=== PATIENT | male | born 1940 | race Caucasian/White ===

== ENCOUNTER 2016-11-07 19:58 | Inpatient (IN) | payer MEDICARE, OTHER ==
[~2016-11-07] VITALS: Ht 180.3 cm; Wt 105.8 kg
--- NOTE | ~2016-11-07 | HP ---
PATIENT'S NAME: [facility] AGE: 76 Y [address] ROOM: [place] [id number] LOCATION: [facility] ADMIT DATE: 11/07/2016 History & Physical DISCHARGE DATE: FAMILY PHYSICIAN: Chelsey Moses MD ATTENDING PHYSICIAN: Kendal Gamboa DATE OF SERVICE: 11/07/2016 REASON FOR REFERRAL: Subdural hematoma. PATIENT IDENTIFICATION: Sen Buck is a 76-year-old male. PRESENTING COMPLAINT: Headache. HISTORY OF PRESENT ILLNESS: The patient has had a headache for the last 2 weeks. He initially was thought to have a sinus infection and was treated with antibiotics. His headache continued. He was seen by his regular doctor, Dr. Beckwith. 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 The patient was therefore referred to me for evaluation and treatment. According to the patient's , the patient has been a little bit confused and not able to keep track of the time and what he has done in the last week or two. He has also been a little bit confused. PAST MEDICAL HISTORY: The patient says he has had some stents or cardiac procedures done here. He also has a history of high blood pressure. He is otherwise healthy. FAMILY HISTORY: No history of similar problems in any member of the family. SOCIAL HISTORY: The patient is . He is a [place]. REVIEW OF SYSTEMS: A 10-point review of systems was carried out, the only abnormal findings were as described in the history of present illness. PHYSICAL EXAMINATION: GENERAL: The patient is a healthy-looking male, who was alert and cooperative through the examination. VITAL SIGNS: Stable. PATIENT'S NAME: SEN BUCK [facility] AGE: 76 Y [address] ROOM: [address] [place] [id number] LOCATION: [facility] ADMIT DATE: 11/07/2016 History & Physical DISCHARGE DATE: FAMILY PHYSICIAN: Chelsey Moses MD ATTENDING PHYSICIAN: Kendal Gamboa NEUROLOGIC: His speech is intact. Cranial nerves, no deficits seen. Motor examination: The patient has normal strength in all the major muscle groups of his upper and lower extremities bilaterally. His gait is intact. HEAD: His head is atraumatic. EYES AND EARS: No evidence of trauma. SKIN: No skin rashes or skin masses. EXTREMITIES: No cyanosis or clubbing. CARDIOVASCULAR: Heart sounds present. RESPIRATORY: The patient is not short of breath at bedside. REVIEW OF IMAGING STUDIES: The patient has had a head CT scan done. The CT scan shows a chronic right subdural hematoma. There is a little bit of midline shift. ASSESSMENT: A 76-year-old gentleman with history of headaches and imaging studies show chronic right subdural hematoma. MEDICAL DECISION MAKING: I discussed the situation with the patient and the . I have recommended surgery. The surgery will be arpit hole evacuation of subdural hematoma. I have gone over the benefits, risks, and alternatives with the patient and his family. The surgery has been scheduled for November 08, 2016. MD CLAUDE BOSEO/jorge /[id number] CC: Carter Beckwith MD D: [id number] T: [id number] HISTORY & PHYSICAL
--- NOTE | ~2016-11-07 | DS ---
PATIENT'S NAME: SEN SEGOVIA [facility] AGE: 76 Y [address] ROOM: [address] [address] LOCATION: [facility] ADMIT DATE: 11/07/2016 Discharge Summary DISCHARGE DATE: 11/10/2016 FAMILY PHYSICIAN: Chelsey Moses MD ATTENDING PHYSICIAN: Kendal Gamboa REASON FOR ADMISSION: The patient is a 76-year-old male who presented with headache and unsteadiness. The head CT scan showed a chronic right subdural hematoma. On examination, the patient was a little bit confused, but had no major deficits. TREATMENT RENDERED: The patient was taken to the operating room on November 08, 2016. He had arpit hole drainage of chronic right subdural hematoma. The surgery was uncomplicated. The postoperative course was uneventful. The patient became much more alert and interactive after the procedure. He had a repeat head CT scan performed November 10, 2016. The CT scan showed significant reduction in the size of the chronic right subdural hematoma. There was some residual air and tiny amount of acute bleed in the most anterior part of the right frontal lobe subdural blood. There was no mass effect or midline shift present as had been seen before surgery. The patient was interacting well and eating normally. The incisions were clean and intact. The patient was discharged home on November 10, 2016 with arrangements made for followup in the Neurosurgery Clinic. He will have a repeat CT scan also to confirm complete resolution of his subdural hematoma. MD CLAUDE BOSEO/jorge /[id number] d: 11/12/16 0253 t: 11/13/16 1558, DISCHARGE SUMMARY
--- NOTE | ~2016-11-07 | OR ---
PATIENT'S NAME: SEN SEGOVIA [facility] AGE: 76 Y [address] ROOM: [address] [address] LOCATION: [facility] ADMIT DATE: 11/07/2016 OR/Procedure Report DISCHARGE DATE: FAMILY PHYSICIAN: Chelsey Moses MD ATTENDING PHYSICIAN: Kendal Sandoval SURGEON: Kendal Sandoval MD CLUB CONCIERGE: Sen Nelson CST. DATE OF PROCEDURE: 11/08/2016 PREOPERATIVE DIAGNOSIS: Chronic right subdural hematoma. POSTOPERATIVE DIAGNOSIS: Chronic right subdural hematoma. PROCEDURE PERFORMED: Arpit hole drainage of chronic right subdural hematoma. ANESTHESIA: General. ANESTHESIA PROVIDER: Silvano Archibald MD. HISTORY: This patient is a 76-year-old gentleman who presented with headache and confusion. CT scan showed a chronic right subdural hematoma. Surgery was recommended. The procedure of arpit hole and drainage of subdural hematoma were explained to the patient and his family. The risks and benefits were discussed and with their consent, the patient was brought to the operating room for surgery. PROCEDURE IN DETAIL: In the operating room, the patient was placed supine and anesthesia was induced. His head was placed on a gel donut and turned facing the left side. The hair on the right side of his head was clipped. The incision lines were marked out for the 2 arpit holes. The 2 areas were prepped and draped in a sterile fashion. Local anesthesia was infiltrated. The #10 blade was used to open the incisions and Bovie was used to deepen the incision to the skull. Self-retaining retractors were placed. Guy holes were made. The dura was opened and subdural blood came out. The blood was dark brown consistent with chronic subdural hematoma. A red rubber catheter was inserted and irrigation was used to wash out the rest of the blood. Irrigation continued until the returns were clear. The drain was then brought out through a stab incision on the scalp. The arpit hole sites were closed with suture materials. The drain was anchored to the scalp. Sterile dressing was applied. The patient's anesthesia was reversed. He was extubated and taken to the recovery room to complete his recovery. PATIENT'S NAME: SEN SEGOVIA [facility] AGE: 76 Y [address] ROOM: [address] [address] LOCATION: [facility] ADMIT DATE: 11/07/2016 OR/Procedure Report DISCHARGE DATE: FAMILY PHYSICIAN: Chelsey Moses MD ATTENDING PHYSICIAN: Kendal Sandoval I was present at and performed every aspect of this procedure, assisted at some stages by the operating room nurses. There were no apparent intraoperative complications. Swabs, needles, and instruments were all accounted for the end of the case. Estimated blood loss was less than 20 mL. There was no reason for blood transfusion. I expect the patient to benefit from this procedure. The repeat CT scan will be obtained to confirm complete evacuation of the hematoma. KENDAL SANDOVAL MD CNO/modl /[id number] d: 11/09/16821 t: 11/13/16 1555, OPERATIVE SUMMARY
[2016-11-07] MEDS ORDERED: PRILOSEC20 MG PO (22:04)
[2016-11-07] MEDS ORDERED: HYDRODIURIL25 MG PO (22:05)
[2016-11-07] MEDS ORDERED: COREG6.25 MG PO (22:06)
[2016-11-07] MEDS ORDERED: LIPITOR20 M1 PO (22:07)
[2016-11-07] MEDS ORDERED: OMNICEF 300MG300 MG PO (22:08)
[2016-11-07] MEDS ORDERED: MUCINEX DM ER1 EAC1 PO (22:09)
[2016-11-07] MEDS ORDERED: BACTRIM DS1 TAB PO (22:10)
[2016-11-07] MEDS ORDERED: PREDNISONE10 MG PO (22:11)
[2016-11-07] MEDS ORDERED: AMLODIPINE-VAL1 EAC1 PO (22:14)
[2016-11-07 22:21] LABS: BASOPHIL % 0.7 %; EOSINOPHIL # 0.1 K/uL (0.0-0.5); EOSINOPHIL % 1.1 %; HEMATOCRIT 37.7 % (37.0-53.0); HEMOGLOBIN 12.8 g/dL (11.0-16.0); IMMATURE GRANULOCYTE % 0.4 %; LYMPHOCYTE # 1.3 K/uL (0.8-4.0); MCH 28.3 pg (27.0-34.0); MCV 83.2 fl (83.0-98.0); MONOCYTE # 0.4 K/uL (0.0-1.0); MONOCYTE % 6.8 %; NEUTROPHIL # (ANC) 3.6 K/uL (1.4-9.0); NRBC % 0 /100WBC (0-0.00); PLATELET COUNT 160 K/uL (150-450); RBC 4.53 M/uL (3.50-5.50); RDW-CV 12.7 % (11.9-14.6); WBC 5.4 K/uL (4.0-11.0)
--- NOTE | 2016-11-07 22:26 | NUR ---
Patient chief complaint is headache. He states the headache has been off and on for a week. Went to the Dr today and had a CT of head done, results showed an subdural hematoma. On admission patient is A/Ox3 but forgetful. Patients family states he has been more forgetful this past few days. No falls or head injuries that the patient/family can remember. Lungs clear. Bowel sounds present, last BM 11/07/16. No complaints of dizziness, vision changes, nausea or vomiting. Other neuro are negative. Iv to lt forarm. NPO after breakfast. Isael Holes to be done tomorrow afternoon. Family at bedside.
[2016-11-07 22:30] LABS: PROTIME 10.8 SECONDS (9.6-11.1); PTT 26 SECONDS (25-32)
[2016-11-07 22:36] LABS: ALBUMIN 3.6 gm/dL (3.5-5.0); ALK PHOS 56 IU/L (33-138); ALT 33 IU/L (12-78); ANION GAP 10.7 (10.0-19.0); AST 16 IU/L (10-40); BLOOD UREA NITROGEN 21 mg/dL (6-24); CALCIUM 8.3 mg/dL (8.5-10.5); CHLORIDE 109 mMol/L (96-110); CO2 26 mMol/L (22-32); ESTIMATED GFR (MDRD EQUATION) > 60; POTASSIUM 3.7 mMol/L (3.7-5.1); SODIUM 142 mMol/L (135-145); TOTAL BILIRUBIN 0.4 mg/dL (0.0-1.5); TOTAL PROTEIN 6.5 g/dL (6.0-8.4)
--- NOTE | 2016-11-08 04:24 | NUR ---
Patient A/Ox3. VSS on RA. Neuro WNL. Lungs clear. Bowel sounds present. Iv to Lt forearm saline locked. NPO after breakfast.
[2016-11-08] MEDS ORDERED: MUCINEX SINUS-1 EAC1 PO (08:50)
[2016-11-08] MEDS ORDERED: ADVIL200 MG PO (08:51)
--- NOTE | 2016-11-08 13:15 | NUR ---
Introduced self and role of care management to patient's . Patient is walking in ball with the nurse. They live in [place], [place]. says plan will be for him to go home when ready for discharge. He is to have OR this afternoon. She says their children live close and are supportive. Will follow.
--- NOTE | 2016-11-08 16:34 | NUR ---
Significant Event: Patient A/O to self and time. Able to state name, , and current month. Unable to state place. VS stable, on RA. Standby assist transfer. Patient denies numbness or tingling to extremities. Moves extremities spontaneous and on command. Patient complains of headache [place] x2 given this shift with relief noted. Pupils 3.0 equal and reactive. Patient up in chair and ambulates in hallway x1 this shift. IV to L) FA SL. No BM this shift. Patient did complain of nausea, Zofran x1 given this AM. Patient off the unit at 1535 for scheduled Isael Hole procedure. Family supportive at bedside. Patient pleasant and cooperative with cares. Follow up:
--- NOTE | 2016-11-09 04:25 | NUR ---
Significant Event: Patient arrived on floor at 2145 from PACU following [place] Hole surgery. Patient was a PCU transfer. Patient alert to self and time, disoriented to place. Able to move all extremities spontaneously and to commands. Equal strength throughout. Denies N&T. PERRLA. NIHSS 0. On tele SR. To give hydralazine if SBP >160. No hydralazine needed during shift. RA lungs clear. Voids per urinal. Activity currently bedrest until AM HOB not to be <10 degrees then activity as tolerated this am. Regular diet. Drsg to head c/d/i. OMKAR drain 50ml out during the night. Pt had 210 out of OMKAR drain in PACU, [place] was made aware of output by PACU nurse. Pain controlled on [place]. IV to L) forearm SL. Follow up:
--- NOTE | 2016-11-09 16:00 | NUR ---
Significant Event: A/O X3, appropriate, cooperative, 1 assist/gait belt, ambulates in ball, up in chair, lots of visitors, drsg to head reinforced, OMKAR output =115ml. CSM and neurochecks intact. NIHSS=0, IVF R)FA, good appetite, Follow up: mobilize - CT scan in a.m.
--- NOTE | 2016-11-10 04:18 | NUR ---
Significant Event: A&Ox3. CMS intact. Moves all extremities spontaneously. Denies N&T. Up 1 assist to SBA pt was able to walk the halls a couple of times during the night without complications. [place] given for pain x1. On tele SR. VSS. RA lungs clear. Voids per urinal. Drsg to head from [place] Holes shadow drainage. OMKAR drain 120ml out. IV to R) forearm running NS at 75ml/hr. Follow up: CT of head this am possible D/C OMKAR drain
[2016-11-10] MEDS ORDERED: NORCO 5-325 TA1 EACH PO (13:56)
--- NOTE | 2016-11-10 15:36 | NUR ---
written and verbal dismissal instructions given to pt., , and family including diet, activity, prescriptions, incision care, blood clot prevention, and follow up care. verbalized understanding. escorted per w/c to ride home in stable condition.
== END 2016-11-10 15:55 | disposition disaster alternative care site (69) | DRG 27 ==
LOC: GPCU 19:58 → GNTU 11-08 16:41
PROVIDERS: ADMIT Neurological Surgery
PROC: 00C40ZZ Extirpation of Matter from Intracranial Subdural Space, Open Approach (ICD-10-PCS; principal; 2016-11-07)
DX: I62.00 Nontraumatic subdural hemorrhage, unspecified (principal)
CPT/HCPCS: J0360; J0690; J1100; J1953; J2405; J7030; J7040; J7120; J7512

== ENCOUNTER → 2016-11-26 | Outpatient (CLI) | payer OTHER, MEDICARE ==
[~2016-11-26] MED LIST: ADVIL200 MG PO; AMLODIPINE-VAL1 EAC1 PO; BACTRIM DS1 TAB PO; COREG6.25 MG PO; HYDRODIURIL25 MG PO; LIPITOR20 M1 PO; MUCINEX DM ER1 EAC1 PO; MUCINEX SINUS-1 EAC1 PO; NORCO 5-325 TA1 EACH PO; OMNICEF 300MG300 MG PO; PREDNISONE10 MG PO; PRILOSEC20 MG PO
== END | disposition disaster alternative care site (69) ==
LOC: GRAD 15:29
DX: I62.03 Nontraumatic chronic subdural hemorrhage (principal); Z98.890 Other specified postprocedural states

== ENCOUNTER → 2016-12-19 | Outpatient (CLI) | payer OTHER | END | disposition disaster alternative care site (69) | LOC: GRAD 08:49 | DX: I62.03 Nontraumatic chronic subdural hemorrhage (principal) ==